=== PATIENT | male | born 1995 | race Caucasian/White ===

== ENCOUNTER 2020-02-14 22:15 | Emergency (ER) | payer OTHER ==
--- NOTE | 2020-02-14 22:39 | ED Physician Documentation ---
History of Present Illness - Stated complaint Stated Complaint: R FINGER INJ - Chief complaint Chief Complaint: Trauma Ext - History obtained from History obtained from: Patient (Patient is a 24-year-old male who damaged his right index finger tonight while he was working in the garage she describes a crush injury and a skin abrasion he is right-hand dominant he did not try any treatment prior to arrival.) Review of Systems Constitutional: reports: Reviewed and negative Eyes: reports: Reviewed and negative Ears: reports: Reviewed and negative Nose: reports: Reviewed and negative Throat: reports: Reviewed and negative Cardiac: reports: Reviewed and negative Respiratory: reports: Reviewed and negative GI: reports: Reviewed and negative : reports: Reviewed and negative Skin: reports: Reviewed and negative Musculoskeletal: reports: Other (Right index finger pain) Neurologic: reports: Reviewed and negative Psychiatric: reports: Reviewed and negative Endocrine: reports: Reviewed and negative Immunocompromised: reports: Reviewed and negative PD PAST MEDICAL HISTORY - Allergies Allergies/Adverse Reactions: Allergies Allergy/AdvReac Type Severity Reaction Status Date / Time No Known Drug Allergies Allergy Verified 02/14/20 22:46 PD ED PE NORMAL - Vitals Vital signs reviewed: Yes - General General: Alert and oriented X 3, No acute distress, Well developed/nourished - HEENT HEENT: PERRL, Moist mucous membranes - Neck Neck: Supple, no meningeal sign - Cardiac Cardiac: RRR, No murmur, Strong equal pulses - Respiratory Respiratory: No respiratory distress, Clear bilaterally - Abdomen Abdomen: Normal bowel sounds, Soft, Non tender, Non distended - Derm Derm: Warm and dry - Extremities Extremities: No deformity, Other (There is a small amount of bruising to the distal aspect of the right index finger distal to the DIP joint there is an abrasion to the lateral aspect of the finger there is no gaping wound sensations intact light touch radian, median, ulnar motor and sensory exam are intact full range of motion on passive and active range of motion on flexion extension of the MCP as well as the PIP and DIP joints.There is no subungual hematoma presentFingernail and nailbed in place. ) - Neuro Neuro: Alert and oriented X 3 - Psych Psych: Normal mood, Normal affect Results - Vitals Vitals: Vital Signs - 24 hr 02/14/20 02/14/20 22:27 23:30 Temperature 36.8 C Heart Rate 97 84 Respiratory 18 18 Rate Blood Pressure 176/101 H 158/98 H O2 Saturation 100 99 Oxygen O2 Source Room air PD MEDICAL DECISION MAKING - ED course Complexity details: reviewed results, re-evaluated patient, considered differential (Crush injury into the distal phalange of the right index finger x- ray shows no fracture there is no obvious subungual hematoma no obvious injury to the nailbed or the fingernail. Will apply bacitracin and simple dressing and have the patient follow-up with his primary care provider tomorrow), d/w patient Departure - Departure Disposition: 01 Home, Self Care Clinical Impression: Crushing injury of right index finger Qualifiers: Encounter type: initial encounter Qualified Code(s): S67.190A - Crushing injury of right index finger, initial encounter Condition: Stable Instructions: ED Crush Injury Finger No Fx Follow-Up: PERLA STEWART MD [Primary Care Provider] - Tomorrow Comments: Ice as needed several times daily keep your finger Clean, dry and protected at all times. call your physician tomorrow to schedule follow-up. Discharge Date/Time: 02/14/20 23:30
[2020-02-14] MEDS ORDERED: ACETAMINOPHEN 325 MG TABLET PO STA (22:44)
--- NOTE | 2020-02-14 23:08 | XRAY Report ---
Reason: Right index finger crush injury Procedure Date: 02/14/2020 Accession Number: [id number] / [id number] Procedure: XR - Hand 3 View RT CPT Code: Final Report FULL RESULT: EXAM: RIGHT HAND RADIOGRAPHY EXAM DATE: 02/14/2020 10:59 PM. CLINICAL HISTORY: Right index finger crush injury. COMPARISON: None. TECHNIQUE: 3 views. FINDINGS: Bones: No acute fractures or suspicious bone lesions. Joints: No subluxations. Soft Tissues: Unremarkable. IMPRESSION: No acute radiographic abnormalities. RADIA
[2020-02-14] MEDS ORDERED: BACITRACIN ZINC OINT 1 PACKET TOP STA (23:18)
[2020-02-14 23:31] VITALS: BP 158/98
== END 2020-02-14 23:30 | disposition home or self-care (01) ==
LOC: ED 22:15
DX: S67.190A Crushing injury of right index finger, initial encounter (principal); S60.410A Abrasion of right index finger, initial encounter; W23.1XXA Caught, crushed, jammed, or pinched between stationary objects, initial encounter; Y92.015 Private garage of single-family (private) house as the place of occurrence of the external cause
CPT/HCPCS: 73130; 99283; A9270

== ENCOUNTER 2021-04-06 22:27 | Outpatient (CLI) | payer OTHER | END 2021-04-06 22:28 | disposition left against medical advice (07) | LOC: EMS 22:27 | DX: S60.418A Abrasion of other finger, initial encounter (principal); V20.4XXA Motorcycle driver injured in collision with pedestrian or animal in traffic accident, initial encounter; Y93.55 Activity, bike riding ==

== ENCOUNTER 2021-04-07 03:36 | Emergency (ER) | payer OTHER ==
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
[2021-04-07 06:37] VITALS: BP 148/99
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
--- NOTE | 2021-04-07 08:25 | XRAY Report ---
PROCEDURE: Hand 3 View LT INDICATIONS: 5th digit injury TECHNIQUE: 3 views of the hand acquired. COMPARISON: None. FINDINGS: Bones: No acute fractures or dislocations. No suspicious bony lesions. Soft tissues: No suspicious soft tissue calcifications. IMPRESSION: No acute osseous abnormality. If there is clinical concern or persistent symptoms, additional imaging such as repeat radiographs or advanced imaging (e.g. CT, MRI) may be helpful for further evaluation. There is no significant discrepancy when compared with the overnight teleradiology report. Reviewed by: Nolan Byrd MD on 04/07/2021 8:23 AM PDT Approved by: Nolna Byrd MD on 04/07/2021 8:23 AM PDT Station ID: [id number]
--- NOTE | 2021-04-07 08:26 | XRAY Report ---
PROCEDURE: Knee 4 View RT INDICATIONS: MCA swelling tender lateral TECHNIQUE: 5 views of the right knee were acquired. COMPARISON: None. FINDINGS: Bones: No acute fractures or dislocations. No suspicious bony lesions. Soft tissues: No joint effusion. No suspicious soft tissue calcifications. Soft tissue edema is se en at the lateral aspect of the knee. IMPRESSION: No acute osseous abnormality. Soft tissue edema at the lateral aspect of the knee. If th ere is clinical concern or persistent symptoms, additional imaging such as repeat radiographs or adva nced imaging (e.g. CT, MRI) may be helpful for further evaluation. There is no significant discrepancy when compared with the overnight teleradiology report. Reviewed by: Nolan Byrd MD on 04/07/2021 8:25 AM PDT Approved by: Nolan Byrd MD on 04/07/2021 8:25 AM PDT Station ID: [id number]
--- NOTE | 2021-04-07 08:31 | CT Report ---
PROCEDURE: CERVICAL SPINE WO INDICATIONS: MCA leanna gan right sided neck pain TECHNIQUE: Noncontrast 3 mm thick sections acquired from the skull base to the T4 level. Sagittal and coronal r eformats were then constructed. For radiation dose reduction, the following was used: automated exp osure control, adjustment of mA and/or kV according to patient size. COMPARISON: None. FINDINGS: Image quality: Excellent. Bones: No fractures or dislocations. Visualized superior ribs are intact. Soft tissues: Prevertebral soft tissues are normal in thickness. No paravertebral hematomas. No ap ical pneumothoraces. IMPRESSION: No fracture. No acute osseous lesion. If there is continued clinical concern for pathology, then MRI should be considered for further evaluation. Reviewed by: Conchita Poon MD, PhD on 04/07/2021 8:30 AM PDT Approved by: Conchita Poon MD, PhD on 04/07/2021 8:30 AM PDT Station ID: [id number]
== END 2021-04-07 06:55 | disposition home or self-care (01) ==
LOC: ED 03:36
DX: S82.832A Other fracture of upper and lower end of left fibula, initial encounter for closed fracture (principal); S16.1XXA Strain of muscle, fascia and tendon at neck level, initial encounter; S80.01XA Contusion of right knee, initial encounter; S69.92XA Unspecified injury of left wrist, hand and finger(s), initial encounter; S99.911A Unspecified injury of right ankle, initial encounter; M79.675 Pain in left toe(s); V20.4XXA Motorcycle driver injured in collision with pedestrian or animal in traffic accident, initial encounter; Y92.410 Unspecified street and highway as the place of occurrence of the external cause
CPT/HCPCS: 99282; 99284

== ENCOUNTER 2021-08-24 14:35 | Outpatient (CLI) | payer OTHER | END 2021-08-24 23:59 | disposition home or self-care (01) | LOC: LAB 14:35 | PROVIDERS: ATTEND Physician Assistant | DX: R50.9 Fever, unspecified (principal); Z20.822 Contact with and (suspected) exposure to COVID-19 ==